=== PATIENT | female | born 1975 | race Caucasian/White ===

== ENCOUNTER 2018-07-06 09:23 | Outpatient (CLI) | payer OTHER | END 2018-07-06 09:24 | disposition home or self-care (01) | LOC: C.LAB 09:23 | DX: G90.09 Other idiopathic peripheral autonomic neuropathy (principal); M32.9 Systemic lupus erythematosus, unspecified; Z68.22 Body mass index [BMI] 22.0-22.9, adult ==

== ENCOUNTER 2018-07-07 11:41 | Outpatient (CLI) | payer OTHER | END 2018-07-07 11:42 | disposition home or self-care (01) | LOC: C.MRIC 11:42 ==